=== PATIENT | male | born 1945 | race Caucasian/White ===

== ENCOUNTER 2021-02-11 04:54 | Emergency (ER) | payer MEDICARE ==
[2021-02-11 05:15] LABS: HEMOGLOBIN 16.9 gm/dl (14.0-17.5); RED BLOOD COUNT 4.7 M/UL (4.20-5.50); WHITE BLOOD COUNT 8.2 K/UL (4.5-11.0)
[2021-02-11 05:38] LABS: BUN/CREATININE RATIO 16 (0-10)
== END 2021-02-11 07:54 | disposition other institution (70) ==
LOC: ER1 04:54
PROVIDERS: Emergency Medicine
DX: I63.9 Cerebral infarction, unspecified (principal); I65.22 Occlusion and stenosis of left carotid artery; I10 Essential (primary) hypertension; F17.210 Nicotine dependence, cigarettes, uncomplicated; Z20.822 Contact with and (suspected) exposure to COVID-19
CPT/HCPCS: 70450; 70496; 70498; 71045; 80053; 82550; 82553; 83735; 83874; 84484; 85025; 85610; 85730; 93005; 99285; Q9967; U0002

== ENCOUNTER 2021-03-05 21:06 | Observation (INO) | payer MEDICARE ==
[~2021-03-05] VITALS: Ht 172.7 cm; Wt 64.9 kg
[2021-03-05 21:38] LABS: HEMOGLOBIN 16.4 gm/dl (14.0-17.5); RED BLOOD COUNT 4.65 M/UL (4.20-5.50); WHITE BLOOD COUNT 10.6 K/UL (4.5-11.0)
[2021-03-05 21:56] LABS: BUN/CREATININE RATIO 17 (0-10)
[2021-03-06] MEDS ORDERED: NORVASC10 MG PO (05:22)
[2021-03-06] MEDS ORDERED: PLAVIX75 MG PO (05:23)
[2021-03-06] MEDS ORDERED: LIPITOR80 MG PO (05:24)
[2021-03-06] MEDS ORDERED: METOPROLOL SUC100 MG PO (05:24)
[2021-03-06] MEDS ORDERED: PROAIR DIGIHAL90 MCG INH (05:25)
[2021-03-06] MEDS ORDERED: IPRAT-ALBUT 0.5-3 ML NEB (05:27)
[2021-03-07 06:38] LABS: BUN/CREATININE RATIO 22 (0-10)
[2021-03-07] MEDS ORDERED: TAB-A-VITE TA400 MC1 PO (10:39)
[2021-03-07] MEDS ORDERED: NICOTINE PATCH1 EAC2 TOP (10:39)
[2021-03-07] MEDS ORDERED: VITAMIN B-1100 M1 PO (10:39)
[2021-03-07] MEDS ORDERED: ASPIRIN EC81 MG PO (10:39)
== END 2021-03-07 15:44 | disposition home or self-care (01) ==
LOC: ER1 21:06 → MED SURG 4 03-06 00:42 → CDU 03-06 00:42 → PROG CARE 03-06 01:22 → CDU 03-06 01:23 → MED SURG 4 03-06 04:28
PROVIDERS: Family Medicine; ADMIT Family Medicine
DX: R47.81 Slurred speech (principal); I69.351 Hemiplegia and hemiparesis following cerebral infarction affecting right dominant side; J44.9 Chronic obstructive pulmonary disease, unspecified; F17.210 Nicotine dependence, cigarettes, uncomplicated; R09.02 Hypoxemia; F10.10 Alcohol abuse, uncomplicated; Z20.822 Contact with and (suspected) exposure to COVID-19; Z79.02 Long term (current) use of antithrombotics/antiplatelets; Z79.899 Other long term (current) drug therapy
CPT/HCPCS: 96375; 36415; 36600; 70450; 70551; 71045; 80053; 82550; 82553; 82803; 84484; 85025; 92507; 92526; 92610; 93005; 93270; 94640; 94664; 94760; 96372; 96374; 97162; 99285; G0378; J1650; J2930; J3411; U0002

== ENCOUNTER → 2021-04-18 | Outpatient (CLI) | payer MEDICARE ==
[~2021-04-18] MED LIST: ASPIRIN EC81 MG PO; DULOXETINE HCL20 MG PO; IPRAT-ALBUT 0.5-3 ML NEB; LIPITOR80 MG PO; METOPROLOL SUC100 MG PO; MULTIVITAMIN1 EACH PO; NICOTINE PATCH1 EAC2 TOP; NORVASC10 MG PO; PLAVIX75 MG PO; PROAIR DIGIHAL90 MCG INH; TAB-A-VITE TA400 MC1 PO; VITAMIN B-1100 M1 PO
== END ==
LOC: US 11:00
DX: M79.605 Pain in left leg (principal)
CPT/HCPCS: 93971

== ENCOUNTER 2021-05-21 14:52 | Observation (INO) | payer MEDICARE ==
[~2021-05-21] VITALS: Ht 172.7 cm; Wt 68.0 kg
[~2021-05-21 14:52] MED LIST changes: -DULOXETINE HCL20 MG PO; -MULTIVITAMIN1 EACH PO
[2021-05-21 15:34] LABS: HEMOGLOBIN 16.5 gm/dl (14.0-17.5); RED BLOOD COUNT 4.91 M/UL (4.20-5.50); WHITE BLOOD COUNT 10.9 K/UL (4.5-11.0)
[2021-05-22] MEDS ORDERED: MULTIVITAMIN1 EACH PO (10:41)
[2021-05-22] MEDS ORDERED: DULOXETINE HCL20 MG PO (10:43)
--- NOTE | 2021-05-22 15:52 | NUR ---
DR TANG NOTIFIED PER PTS FAMILY REQUEST FOR CONCERN OVER PTS RIGHT ELBOW HAVING FLUID COLLECTION INTERNALLY. ALSO RIGHT ELBOW AND RIGHT FOREARM SKIN TEARS WERE STERI STRIPED PER NURSING.
== END 2021-05-23 16:50 | disposition home or self-care (01) ==
LOC: ER1 14:52 → CDU 20:18 → M/S 20:18
PROVIDERS: Emergency Medicine; ADMIT Internal Medicine
DX: I95.9 Hypotension, unspecified (principal); R00.1 Bradycardia, unspecified; E86.0 Dehydration; N17.9 Acute kidney failure, unspecified; S50.01XA Contusion of right elbow, initial encounter; I69.351 Hemiplegia and hemiparesis following cerebral infarction affecting right dominant side; J44.9 Chronic obstructive pulmonary disease, unspecified; F17.210 Nicotine dependence, cigarettes, uncomplicated; I10 Essential (primary) hypertension; E78.5 Hyperlipidemia, unspecified; E44.0 Moderate protein-calorie malnutrition; Z68.22 Body mass index [BMI] 22.0-22.9, adult; Z20.822 Contact with and (suspected) exposure to COVID-19; Z99.3 Dependence on wheelchair; Z79.82 Long term (current) use of aspirin; Z79.02 Long term (current) use of antithrombotics/antiplatelets; Z79.01 Long term (current) use of anticoagulants; Z79.899 Other long term (current) drug therapy; W19.XXXA Unspecified fall, initial encounter; Y92.019 Unspecified place in single-family (private) house as the place of occurrence of the external cause
CPT/HCPCS: ECHO; 36415; 70450; 70551; 71045; 73080; 80053; 80061; 80307; 81001; 82140; 82550; 82553; 82570; 82607; 82746; 83735; 83874; 83880; 84100; 84156; 84300; 84439; 84443; 84484; 85025; 85610; 85730; 86140; 90471; 90715; 93005; 93306; 93880; 94640; 94664; 94760; 96372; 99285; G0378; G0480; J1650; U0002

== ENCOUNTER 2021-07-16 20:28 | Emergency (ER) | payer MEDICARE ==
[~2021-07-16 20:28] MED LIST changes: +DULOXETINE HCL20 MG PO; +MULTIVITAMIN1 EACH PO
[2021-07-16 20:59] LABS: HEMOGLOBIN 15.4 gm/dl (14.0-17.5); RED BLOOD COUNT 4.69 M/UL (4.20-5.50); WHITE BLOOD COUNT 9.6 K/UL (4.5-11.0)
[2021-07-16 21:17] LABS: BUN/CREATININE RATIO 17 (0-10)
== END 2021-07-17 01:25 | disposition home or self-care (01) ==
LOC: ER1 20:28
PROVIDERS: Physician Assistant Medical
DX: R19.7 Diarrhea, unspecified (principal); J44.9 Chronic obstructive pulmonary disease, unspecified; I10 Essential (primary) hypertension; Z86.73 Personal history of transient ischemic attack (TIA), and cerebral infarction without residual deficits; F17.210 Nicotine dependence, cigarettes, uncomplicated
CPT/HCPCS: 80053; 81001; 83605; 85025; 99284

== ENCOUNTER 2021-09-04 10:53 | Inpatient (IN) | payer MEDICARE ==
[~2021-09-04] VITALS: Ht 172.7 cm; Wt 68.5 kg
[~2021-09-04 10:53] MED LIST changes: -DULOXETINE HCL20 MG PO; +DULOXETINE HCL30 MG PO; -PROAIR DIGIHAL90 MCG INH; +PROAIR HFA8.5 GM INH
[2021-09-04 12:00] LABS: HEMOGLOBIN 15.7 gm/dl (14.0-17.5); RED BLOOD COUNT 4.83 M/UL (4.20-5.50); WHITE BLOOD COUNT 9.2 K/UL (4.5-11.0)
[2021-09-04 12:20] LABS: BUN/CREATININE RATIO 12 (0-10)
[2021-09-04] MEDS ORDERED: METOPROLOL SUC100 MG PO (15:32)
[2021-09-04] MEDS ORDERED: CRESTOR40 MG PO (15:33)
[2021-09-04] MEDS ORDERED: PROTONIX 40 MG40 M1 PO (15:33)
[2021-09-04] MEDS ORDERED: MELATONIN5 M2 PO (15:35)
[2021-09-04] MEDS ORDERED: IMODIUM CAP 2 MG2 MG PO (15:35)
[2021-09-04] MEDS ORDERED: CRANBERRY200 MG PO (15:36)
[2021-09-05 07:48] LABS: HEMOGLOBIN 14.1 gm/dl (14.0-17.5); RED BLOOD COUNT 4.45 M/UL (4.20-5.50)
[2021-09-05 08:00] LABS: BUN/CREATININE RATIO 12 (0-10)
--- NOTE | 2021-09-05 14:35 | NUR ---
PATIENT DOES NOT QUALIFY FOR HOME O2 USE AT THIS TIME. PULSE OX 94% ON RA.
[2021-09-06 04:01] LABS: HEMOGLOBIN 13.5 gm/dl (14.0-17.5); RED BLOOD COUNT 4.18 M/UL (4.20-5.50)
[2021-09-06 04:35] LABS: BUN/CREATININE RATIO 11 (0-10)
--- NOTE | 2021-09-06 12:31 | NUR ---
PATIENT ROOM AIR SATURATION 82%
[2021-09-07 07:10] LABS: HEMOGLOBIN 14.7 gm/dl (14.0-17.5); RED BLOOD COUNT 4.55 M/UL (4.20-5.50); WHITE BLOOD COUNT 8.5 K/UL (4.5-11.0)
[2021-09-07 07:56] LABS: BUN/CREATININE RATIO 10 (0-10)
[2021-09-07] MEDS ORDERED: HYDRALAZINE HCL25 MG PO (11:42)
[2021-09-07] MEDS ORDERED: MYCOSTATIN OINT15 GM TOP (11:42)
--- NOTE | 2021-09-07 13:01 | NUR ---
ORTHOSTATIC VITAL SIGNS COMPLETED PRIOR TO DISCHARGE PER DR. SHELDON INSTRUCTION. RESULTS SITTING 117/55, HR 75, STANDING 116/52, HR 78, LAYING 132/58, HR 63. INSTRUCTED TO EDUCATE PATIENT ON TIERRA HOSE USE.
== END 2021-09-07 14:03 | disposition home health service (06) | DRG 309 ==
LOC: ER1 10:53 → CDU 14:53 → M/S 14:53
PROVIDERS: Student in an Organized Health Care Education/Training Program; ADMIT Internal Medicine
DX: R00.1 Bradycardia, unspecified (principal); I69.351 Hemiplegia and hemiparesis following cerebral infarction affecting right dominant side; I65.29 Occlusion and stenosis of unspecified carotid artery; Z20.822 Contact with and (suspected) exposure to COVID-19; I10 Essential (primary) hypertension; E78.5 Hyperlipidemia, unspecified; J44.9 Chronic obstructive pulmonary disease, unspecified; F10.10 Alcohol abuse, uncomplicated; F17.210 Nicotine dependence, cigarettes, uncomplicated; S01.81XA Laceration without foreign body of other part of head, initial encounter; W07.XXXA Fall from chair, initial encounter; R53.81 Other malaise; Z79.82 Long term (current) use of aspirin; Z82.3 Family history of stroke
CPT/HCPCS: 36415; 70450; 70551; 71045; 80053; 80061; 82550; 82553; 83874; 84439; 84443; 84484; 85025; 85027; 90471; 90715; 93005; 93270; 94640; 94760; 96372; 97110; 97110-GP-CQ; 97161; 97166; 97530-GP-CQ; 99285; G0378; J1650; U0002

== ENCOUNTER → 2021-09-19 | Outpatient (CLI) | payer MEDICARE ==
[~2021-09-19] MED LIST changes: +CRANBERRY200 MG PO; +CRESTOR40 MG PO; +HYDRALAZINE HCL25 MG PO; +IMODIUM CAP 2 MG2 MG PO; +MELATONIN5 M2 PO; +MYCOSTATIN OINT15 GM TOP; +PROTONIX 40 MG40 M1 PO
[2021-09-19 14:05] LABS: HEMOGLOBIN 15.8 gm/dl (14.0-17.5); RED BLOOD COUNT 4.89 M/UL (4.20-5.50); WHITE BLOOD COUNT 10.3 K/UL (4.5-11.0)
[2021-09-19 14:21] LABS: BUN/CREATININE RATIO 13 (0-10)
[2021-09-20 09:13] LABS: VITAMIN D, 25-HYDROXY 46.6 ng/mL (30.0-100.0)
[2021-09-20 11:13] LABS: ANTISTREPTOLYSIN O AB 80.6 IU/mL (0.0-200.0); RHEUMATOID ARTHRITIS FACTOR <10.0 IU/mL (0.0-13.9)
== END ==
LOC: LAB 12:56
PROVIDERS: Nurse Practitioner Family
DX: Z00.00 Encounter for general adult medical examination without abnormal findings (principal); R53.83 Other fatigue; I25.10 Atherosclerotic heart disease of native coronary artery without angina pectoris; E78.00 Pure hypercholesterolemia, unspecified; I10 Essential (primary) hypertension; M25.50 Pain in unspecified joint; E53.8 Deficiency of other specified B group vitamins; E55.9 Vitamin D deficiency, unspecified
CPT/HCPCS: 36415; 80053; 80061; 82607; 84439; 84443; 84550; 85025; 85652; 86038; 86060; 86141; 86431; G0103

== ENCOUNTER → 2021-09-25 | Outpatient (CLI) | payer MEDICARE | LOC: KOH-I 08:22 | DX: R19.7 Diarrhea, unspecified (principal) | CPT/HCPCS: 76705 ==

== ENCOUNTER → 2021-10-09 | Outpatient (CLI) | payer MEDICARE | LOC: NM 08:39 | DX: R19.7 Diarrhea, unspecified (principal) | CPT/HCPCS: 78227; A9537; J2805 ==

== ENCOUNTER → 2021-12-06 | Outpatient (CLI) | payer MEDICARE | LOC: HEART 5 14:36 | DX: R06.02 Shortness of breath (principal) | CPT/HCPCS: 94060; 94729 ==

== ENCOUNTER → 2022-01-16 | Outpatient (CLI) | payer MEDICARE ==
[2022-01-16 10:55] LABS: HEMOGLOBIN 16.1 gm/dl (14.0-17.5); RED BLOOD COUNT 4.98 M/UL (4.20-5.50); WHITE BLOOD COUNT 10.6 K/UL (4.5-11.0)
[2022-01-16 11:17] LABS: BUN/CREATININE RATIO 16 (0-10)
[2022-01-17 14:11] LABS: LYME IGG/IGM AB <0.91 ISR (0.00-0.90)
[2022-01-17 16:14] LABS: TREPONEMA PALLIDUM ANTIBODIES Non Reactive (Non Reactive)
== END ==
LOC: LAB 09:55
PROVIDERS: Nurse Practitioner Family
DX: Z00.00 Encounter for general adult medical examination without abnormal findings (principal); J44.9 Chronic obstructive pulmonary disease, unspecified; I25.10 Atherosclerotic heart disease of native coronary artery without angina pectoris; I10 Essential (primary) hypertension; E78.00 Pure hypercholesterolemia, unspecified; E78.5 Hyperlipidemia, unspecified; R53.83 Other fatigue; E55.9 Vitamin D deficiency, unspecified; E53.8 Deficiency of other specified B group vitamins; R41.3 Other amnesia
CPT/HCPCS: 36415; 80053; 80061; 81001; 82175; 82607; 82746; 83655; 83825; 84439; 84443; 85025; 86780

== ENCOUNTER → 2022-01-19 | Outpatient (CLI) | payer MEDICARE | LOC: RAD 08:49 | DX: R31.9 Hematuria, unspecified (principal) | CPT/HCPCS: 74018 ==

== ENCOUNTER → 2022-01-22 | Outpatient (CLI) | payer MEDICARE ==
[~2022-01-22] VITALS: Ht 172.7 cm; Wt 68.0 kg
== END ==
LOC: OPSV 06:45
DX: M72.0 Palmar fascial fibromatosis [Dupuytren] (principal)
CPT/HCPCS: J0775

== ENCOUNTER → 2022-03-07 | Outpatient (CLI) | payer MEDICARE | LOC: EXRD 13:19 | DX: J44.9 Chronic obstructive pulmonary disease, unspecified (principal) | CPT/HCPCS: 71046 ==

== ENCOUNTER → 2022-06-25 | Outpatient (CLI) | payer MEDICARE | LOC: EXRD 12:46 | DX: R05.9 Cough, unspecified (principal) | CPT/HCPCS: 71046 ==

== ENCOUNTER → 2022-07-09 | Outpatient (CLI) | payer MEDICARE | LOC: KOH-I 07-02 15:00 | DX: F17.210 Nicotine dependence, cigarettes, uncomplicated (principal); R91.8 Other nonspecific abnormal finding of lung field | CPT/HCPCS: 71271 ==